=== PATIENT | male | born 1970 | race Two or more races ===

== ENCOUNTER 2024-02-13 09:26 | Emergency (ER) | payer BC ==
[~2024-02-13] VITALS: Ht 180.3 cm; Wt 86.2 kg
[2024-02-13] MEDS ORDERED: RINGERS SOLUTION,LACTATED 1,000 ML IV STA (10:18)
[2024-02-13] MEDS ORDERED: MEPERIDINE HCL/PF 50 MG/ML VIAL IM STA (10:21)
[2024-02-13 11:07] LABS: HEMOGLOBIN 15.2 g/dL (13-16.00); MEAN CELL VOLUME 89.3 fL (80.0-100.00); MEAN CORPUSCULAR HEMOGLOBIN 31.6 pg (27.00-32.0); MEAN CORPUSCULAR HGB CONC 35.4 g/dl (32.0-36.0); PLATELET COUNT 196 K/uL (150-450); RED BLOOD COUNT 4.81 M/uL (4.00-6.00); RED CELL DISTRIBUTION WIDTH 13.9 % (11.5-14.5)
[2024-02-13] MEDS ORDERED: KETOROLAC TROMETHAMINE 60 MG VIAL IM STA (11:55)
[2024-02-13 12:02] LABS: ALBUMIN 4.1 gm/dL (3.4-5.0); ALKALINE PHOSPHATASE 72 U/L (50-136); ALT/SGPT 33 U/L (12-78); ANION GAP 11 (10.0-20.0); AST/SGOT 27 U/L (15-37); BILIRUBIN,CONJUGATED < 0.10 mg/dL (0.0-0.2); BLOOD UREA NITROGEN 14 mg/dL (7-18); BUN CREA RATIO 13 (7.0-25.0); CARBON DIOXIDE 28 mEq/L (21-32); CHLORIDE 102 mmol/L (98-107); CREATININE SERUM 1.11 mg/dL (0.70-1.30); GFR 69.03; GLUCOSE FASTING 119 mg/dL (65-100); OSMOLALITY SERUM 275 MOSM/KG (275-295); POTASSIUM 4.42 mEq/L (3.5-5.1); SODIUM 137 mmol/L (136-145); TOTAL PROTEIN 7.2 gm/dL (6.4-8.2)
== END 2024-02-13 16:03 | disposition home or self-care (01) ==
LOC: ER 09:28
PROVIDERS: General Practice
DX: R19.2 Visible peristalsis (principal); R10.9 Unspecified abdominal pain; I10 Essential (primary) hypertension; Z88.0 Allergy status to penicillin